=== PATIENT | female | born 1980 | race Caucasian/White ===

== ENCOUNTER 2022-03-18 10:24 | Inpatient (IN) | payer OTHER ==
[~2022-03-18] VITALS: Ht 175.3 cm; Wt 90.7 kg
[2022-03-18 11:02] LABS: APPEARANCE,URINE SL CLOUDY (CLEAR); BILIRUBIN,URINE NEGATIVE (NEGATIVE); COLOR,URINE DARK YELLOW (YELLOW); GLUCOSE, URINE (UA) NEGATIVE (NEGATIVE); KETONES,URINE NEGATIVE (NEGATIVE); LEUKOCYTE ESTERASE ,URINE TRACE (NEGATIVE); NITRATE,URINE NEGATIVE (NEGATIVE); OCCULT BLOOD,URINE LARGE (NEGATIVE); PH,URINE 6.5 (5.0-8.0); PROTEIN,URINE NEGATIVE (NEGATIVE); UROBILINOGEN,URINE 0.2 mg/dL (0.2-1.0)
[2022-03-18 11:03] LABS: HCG,QUALITATIVE URINE NEGATIVE (NEGATIVE)
[2022-03-18 11:09] LABS: CREATININE 0.7 mg/dL (0.5-1.5)
[2022-03-18 11:19] LABS: ALBUMIN 2.2 g/dL (3.5-5.0); TOTAL PROTEIN, SERUM 7.1 g/dL (6.0-8.3)
[2022-03-18 11:26] LABS: BASOPHILS % (AUTO) 0.1 % (0.0-5.0); EOSINOPHILS % (AUTO) 0.6 % (0.0-8.0); HEMATOCRIT 32.5 % (36-48); LYMPHOCYTES % (AUTO) 15.7 % (21.0-51.0); MEAN CORPUSCULAR HEMOGLOBIN 26.7 pg (27.0-33.0); MEAN CORPUSCULAR VOLUME 83.3 fL (79-99); MONOCYTES % (AUTO) 5.2 % (3.0-13.0); NEUTROPHILS % (AUTO) 77.5 % (40.0-77.0); PLATELET COUNT (AUTO) 486 K/uL (130-400); WHITE BLOOD COUNT (AUTO) 15.7 K/uL (4.8-10.8)
[2022-03-18] MEDS ORDERED: ONDANSETRON 4MG INJ IVP ONE (11:30)
[2022-03-18] MEDS ORDERED: MORPHINE 4 MG SYG IVP ONE ×2 (11:30→14:00)
[2022-03-18] MEDS: 0.9%NACL 1000ML 1,000 ML IV SCH ×3 (11:42→16:19)
[2022-03-18 11:46] LABS: BACTERIA,URINE Few /HPF (None Seen); MUCUS,URINE Many LPF (None Seen); WBC,URINE 0-1 /HPF (0-1)
[2022-03-18] MEDS ORDERED: IOHEXOL 350 MG/ML 100ML INFUS..BTL IV ONE (12:34)
[2022-03-18] MEDS ORDERED: ZOSYN 3.375GM +NS 50ML IV ONE (14:00)
[2022-03-18] MEDS ORDERED: MORPHINE 8MG VIAL IVP ONE (16:00)
[2022-03-18] MEDS ORDERED: KETOROLAC 30MG VIAL (30MG/ML) IVP ONE (16:00)
[2022-03-18] MEDS ORDERED: MORPHINE 4 MG SYG ONE (21:53)
[2022-03-18] MEDS ORDERED: TEMAZEPAM 15 MG CAPSULE PO PRN (23:00)
[2022-03-18] MEDS ORDERED: ACETAMINOPHEN 650 MG SUPPOSITORY RC PRN (23:00)
[2022-03-18] MEDS ORDERED: LABETALOL 20MG SYG IV PRN (23:00)
[2022-03-18] MEDS ORDERED: HYDRALAZINE 20MG/ML VIAL IV PRN (23:00)
[2022-03-18] MEDS ORDERED: ONDANSETRON 4MG INJ IVP PRN (23:00)
[2022-03-18] MEDS ORDERED: HYDROMORPHONE 1 MG INJ IVP PRN (23:00)
[2022-03-18] MEDS ORDERED: CLONIDINE HCL 0.1 MG TABLET PO PRN (23:00)
[2022-03-18] MEDS ORDERED: LACTULOSE 20 GM/30 ML UDCUP PO PRN (23:00)
[2022-03-18] MEDS ORDERED: DOCUSATE SODIUM 100 MG CAP PO PRN (23:00)
[2022-03-18] MEDS: ZOSYN 3.375GM +NS 50ML IV SCH (23:57)
[2022-03-18] MEDS: LACTATED RINGERS 1000ML 1,000 ML IV SCH (23:57)
[2022-03-19] VITALS (10 sets, daily range): BP systolic 81–126; BP diastolic 29–67
[2022-03-19] MEDS: TRAMADOL HCL 50 MG TABLET PO PRN (00:26)
[2022-03-19] MEDS: HYDROMORPHONE 1 MG INJ IVP PRN (04:01)
[2022-03-19] MEDS ORDERED: POTASSIUM CHLORIDE 20MEQ/100ML 100 ML IV PRN (04:30)
[2022-03-19] MEDS ORDERED: DEXTROSE 50%-WATER 50 ML DISP.SYRIN IV PRN (04:30)
[2022-03-19] MEDS ORDERED: GLUCAGON 1MG KIT 1 MG ML IM PRN (04:30)
[2022-03-19] MEDS: INSULIN HUMULIN R 100 UNIT/ML 3ML SQ SCH ×4 (06:00→21:00)
[2022-03-19] MEDS: KETOROLAC 30MG VIAL (30MG/ML) IM PRN ×2 (07:21→15:13)
[2022-03-19 07:34] LABS: BASOPHILS % (AUTO) 0.1 % (0.0-5.0); EOSINOPHILS % (AUTO) 0.8 % (0.0-8.0); HEMATOCRIT 30.9 % (36-48); LYMPHOCYTES % (AUTO) 22.2 % (21.0-51.0); MEAN CORPUSCULAR HEMOGLOBIN 26.9 pg (27.0-33.0); MEAN CORPUSCULAR HGB CONC 32.4 g/dL (32.0-36.0); MEAN CORPUSCULAR VOLUME 83.1 fL (79-99); MONOCYTES % (AUTO) 4.3 % (3.0-13.0); NEUTROPHILS % (AUTO) 71.7 % (40.0-77.0); PLATELET COUNT (AUTO) 475 K/uL (130-400); RED BLOOD CELL COUNT(AUTO) 3.72 MIL/uL (4.00-5.50); RED CELL DISTRIBUTION WIDTH 15.9 % (11.0-15.5); WHITE BLOOD COUNT (AUTO) 13.7 K/uL (4.8-10.8)
[2022-03-19 07:45] LABS: CREATININE 0.8 mg/dL (0.5-1.5); MAGNESIUM 1.6 mg/dL (1.80-2.40); PHOSPHORUS 3.8 mg/dL (2.5-4.9)
[2022-03-19] MEDS: LACTATED RINGERS 1000ML 1,000 ML IV SCH (08:34)
[2022-03-19] MEDS: ZOSYN 3.375GM +NS 50ML IV SCH ×3 (08:34→23:21)
[2022-03-19] MEDS: PANTOPRAZOLE 40 MG/VIAL IVP SCH ×2 (10:24→20:36)
[2022-03-19 10:27] LABS: PROTHROMBIN TIME 10.9 SEC (9.6-11.6)
[2022-03-19 10:28] LABS: PARTIAL THROMBOPLASTIN TIME 27.9 SEC (26.3-35.5)
[2022-03-19] MEDS ORDERED: FENTANYL CITRATE PF 50 MCG/1 ML 2ML VIAL ONE (13:14)
[2022-03-19] MEDS ORDERED: MIDAZOLAM HCL 1 MG/ML 2ML VIAL ONE (13:15)
[2022-03-19] MEDS ORDERED: IOHEXOL 350 MG/ML 100ML INFUS..BTL IV ONE (13:37)
[2022-03-19] MEDS ORDERED: LIDOCAINE HCL-MPF 1% 2ML VIAL ONE (16:23)
[2022-03-20] VITALS (7 sets, daily range): BP systolic 89–111; BP diastolic 49–57
[2022-03-20] MEDS: ACETAMINOPHEN 325 MG TAB PO PRN ×3 (00:15→19:26)
[2022-03-20] MEDS: LACTATED RINGERS 1000ML 1,000 ML IV SCH ×2 (00:20→00:21)
[2022-03-20] MEDS ORDERED: LACTATED RINGERS IV ONE (00:30)
[2022-03-20] MEDS ORDERED: VANCOMYCIN 1G VIAL IVPB ONE (00:30)
[2022-03-20] MEDS ORDERED: VANCOMYCIN PROTOCOL PER PHARMACY IV SCH (00:30)
[2022-03-20] MEDS ORDERED: DEXTROSE 50%-WATER 50 ML DISP.SYRIN IV PRN (01:00)
[2022-03-20] MEDS ORDERED: GLUCAGON 1MG KIT 1 MG ML IM PRN (01:00)
[2022-03-20] MEDS ORDERED: LIDOCAINE HCL-MPF 1% 2ML VIAL IV PRN (01:00)
[2022-03-20] MEDS ORDERED: NOREPINEPHRIN 4MG/NS 250ML 250 ML IV SCH (01:00)
[2022-03-20] MEDS ORDERED: POTASSIUM CHLORIDE 20MEQ/100ML 100 ML IV PRN (01:00)
[2022-03-20] MEDS ORDERED: VANCOMYCIN 1G/250ML KIT 250 ML IV ONE (01:00)
[2022-03-20] MEDS: TRAMADOL HCL 50 MG TABLET PO PRN (04:33)
[2022-03-20 04:44] LABS: BASOPHILS % (AUTO) 0.3 % (0.0-5.0); EOSINOPHILS % (AUTO) 0.2 % (0.0-8.0); HEMATOCRIT 29.8 % (36-48); LYMPHOCYTES % (AUTO) 6.2 % (21.0-51.0); MEAN CORPUSCULAR HEMOGLOBIN 27.1 pg (27.0-33.0); MEAN CORPUSCULAR HGB CONC 32.9 g/dL (32.0-36.0); MEAN CORPUSCULAR VOLUME 82.5 fL (79-99); MONOCYTES % (AUTO) 0.8 % (3.0-13.0); PLATELET COUNT (AUTO) 393 K/uL (130-400); RED BLOOD CELL COUNT(AUTO) 3.61 MIL/uL (4.00-5.50); WHITE BLOOD COUNT (AUTO) 24.7 K/uL (4.8-10.8)
[2022-03-20 04:59] LABS: ALBUMIN 1.7 g/dL (3.5-5.0); CREATININE 0.9 mg/dL (0.5-1.5); MAGNESIUM 1.2 mg/dL (1.80-2.40); POTASSIUM 3.8 mmol/L (3.5-5.1); TOTAL PROTEIN, SERUM 6.2 g/dL (6.0-8.3)
[2022-03-20] MEDS: INSULIN HUMULIN R 100 UNIT/ML 3ML SQ SCH ×4 (06:00→23:58)
[2022-03-20] MEDS: MAGNESIUM 2GM PREMIX 50ML 50 ML IV PRN (06:20)
[2022-03-20] MEDS ORDERED: POTASSIUM CHLORIDE 10% ELIXIR 20 MEQ/15 ML UDCUP PO PRN (06:30)
[2022-03-20] MEDS ORDERED: KCL 20 MEQ ERTAB PO PRN (06:30)
[2022-03-20] MEDS: PANTOPRAZOLE 40 MG/VIAL IVP SCH ×2 (08:25→20:02)
[2022-03-20] MEDS: ZOSYN 3.375GM +NS 50ML IV SCH ×3 (08:26→23:41)
[2022-03-20] MEDS: VANCOMYCIN 1.25 GM/250 ML BAG 250 ML IV SCH ×2 (08:26→20:02)
[2022-03-20] MEDS: DEXTROSE 5%-LACTATED RINGERS 1,000 ML IV SCH ×3 (10:55→20:30)
[2022-03-20] MEDS ORDERED: TEMAZEPAM 7.5 MG CAPSULE PO PRN (21:00)
[2022-03-20] MEDS ORDERED: MIDODRINE HCL 5 MG TABLET PO PRN (21:30)
[2022-03-21 03:32] VITALS: BP 115/65
[2022-03-21 03:41] LABS: BASOPHILS % (AUTO) 0.2 % (0.0-5.0); EOSINOPHILS % (AUTO) 0.7 % (0.0-8.0); HEMATOCRIT 28.7 % (36-48); LYMPHOCYTES % (AUTO) 11.7 % (21.0-51.0); MEAN CORPUSCULAR HEMOGLOBIN 26.8 pg (27.0-33.0); MEAN CORPUSCULAR HGB CONC 32.1 g/dL (32.0-36.0); MEAN CORPUSCULAR VOLUME 83.7 fL (79-99); MONOCYTES % (AUTO) 1.4 % (3.0-13.0); NEUTROPHILS % (AUTO) 84.6 % (40.0-77.0); PLATELET COUNT (AUTO) 398 K/uL (130-400); RED BLOOD CELL COUNT(AUTO) 3.43 MIL/uL (4.00-5.50); RED CELL DISTRIBUTION WIDTH 16.2 % (11.0-15.5); WHITE BLOOD COUNT (AUTO) 16.9 K/uL (4.8-10.8)
[2022-03-21 04:03] LABS: ALBUMIN 1.5 g/dL (3.5-5.0); CREATININE 0.7 mg/dL (0.5-1.5); POTASSIUM 4.1 mmol/L (3.5-5.1)
[2022-03-21 04:15] LABS: INR 1.1 (0.85-1.15); PROTHROMBIN TIME 11.9 SEC (9.6-11.6)
[2022-03-21 04:25] LABS: % IRON SATURATION 7.6 % (22-44)
[2022-03-21 04:31] LABS: RETICULOCYTE % (AUTO) 0.87 % (0.42-2.23)
[2022-03-21] MEDS: INSULIN HUMULIN R 100 UNIT/ML 3ML SQ SCH ×4 (06:00→20:21)
[2022-03-21] MEDS: DEXTROSE 5%-LACTATED RINGERS 1,000 ML IV SCH ×3 (06:30→22:01)
[2022-03-21] MEDS ORDERED: DIATR MEGLU/DIATRIZOATE SODIUM 30 ML BOTTLE ONE (06:30)
[2022-03-21] MEDS ORDERED: 0.9%NACL 50ML 50 ML IV ONE (06:33)
[2022-03-21] MEDS: ZOSYN 3.375GM +NS 50ML IV SCH ×3 (06:49→23:54)
[2022-03-21 07:30] VITALS: BP 115/72
[2022-03-21] MEDS: VANCOMYCIN 1.25 GM/250 ML BAG 250 ML IV SCH ×2 (09:03→20:39)
[2022-03-21] MEDS: FLUCONAZOLE 400 MG/NS 200 ML 200 ML IV SCH (09:03)
[2022-03-21] MEDS: PANTOPRAZOLE 40 MG/VIAL IVP SCH ×2 (09:03→20:38)
[2022-03-21] MEDS: ENOXAPARIN SODIUM 40 MG/0.4 ML SYRINGE SQ SCH (09:04)
[2022-03-21] MEDS: HYDROMORPHONE 1 MG INJ IVP PRN (09:04)
[2022-03-21 09:27] LABS: INR 1.08 (0.85-1.15); PROTHROMBIN TIME 11.7 SEC (9.6-11.6)
[2022-03-21 09:29] LABS: PARTIAL THROMBOPLASTIN TIME 28.5 SEC (26.3-35.5)
[2022-03-21 11:19] VITALS: BP 125/72
[2022-03-21] MEDS ORDERED: PROPOFOL 10 MG/ML 20ML VIAL IV ONE (12:52)
[2022-03-21] MEDS ORDERED: KETOROLAC 30MG VIAL (30MG/ML) ONE (12:56)
[2022-03-21] MEDS ORDERED: IOHEXOL 350 MG/ML 100ML INFUS..BTL IV ONE (13:48)
[2022-03-21 15:43] VITALS: BP 117/70
[2022-03-21] MEDS: KETOROLAC 30MG VIAL (30MG/ML) IM PRN (17:19)
[2022-03-21 20:00] VITALS: BP 101/74
[2022-03-22] VITALS: BP 112/78
[2022-03-22] MEDS: HYDROMORPHONE 1 MG INJ IVP PRN ×2 (01:52→11:52)
[2022-03-22 03:49] LABS: BASOPHILS % (AUTO) 0.1 % (0.0-5.0); EOSINOPHILS % (AUTO) 2.1 % (0.0-8.0); HEMATOCRIT 28.6 % (36-48); LYMPHOCYTES % (AUTO) 17.5 % (21.0-51.0); MEAN CORPUSCULAR HEMOGLOBIN 26.9 pg (27.0-33.0); MEAN CORPUSCULAR HGB CONC 32.2 g/dL (32.0-36.0); MEAN CORPUSCULAR VOLUME 83.6 fL (79-99); MONOCYTES % (AUTO) 3.5 % (3.0-13.0); NEUTROPHILS % (AUTO) 75.8 % (40.0-77.0); PLATELET COUNT (AUTO) 401 K/uL (130-400); RED BLOOD CELL COUNT(AUTO) 3.42 MIL/uL (4.00-5.50); RED CELL DISTRIBUTION WIDTH 16.4 % (11.0-15.5); WHITE BLOOD COUNT (AUTO) 7.1 K/uL (4.8-10.8)
[2022-03-22 03:52] VITALS: BP 129/70
[2022-03-22 04:24] LABS: ALBUMIN 1.5 g/dL (3.5-5.0); CREATININE 0.8 mg/dL (0.5-1.5); MAGNESIUM 1.9 mg/dL (1.80-2.40); POTASSIUM 3.9 mmol/L (3.5-5.1); TOTAL PROTEIN, SERUM 6.1 g/dL (6.0-8.3)
[2022-03-22] MEDS: INSULIN HUMULIN R 100 UNIT/ML 3ML SQ SCH ×3 (07:23→15:49)
[2022-03-22] MEDS: ZOSYN 3.375GM +NS 50ML IV SCH ×3 (07:30→23:13)
[2022-03-22 08:00] VITALS: BP 125/74
[2022-03-22] MEDS: VANCOMYCIN 1.25 GM/250 ML BAG 250 ML IV SCH (08:56)
[2022-03-22] MEDS: FLUCONAZOLE 400 MG/NS 200 ML 200 ML IV SCH (08:56)
[2022-03-22] MEDS: PANTOPRAZOLE 40 MG/VIAL IVP SCH ×2 (08:57→20:01)
[2022-03-22] MEDS: ENOXAPARIN SODIUM 40 MG/0.4 ML SYRINGE SQ SCH (08:57)
[2022-03-22] MEDS: DEXTROSE 5%-LACTATED RINGERS 1,000 ML IV SCH (08:57)
[2022-03-22 11:22] VITALS: BP 122/74
[2022-03-22] MEDS ORDERED: IBUPROFEN 600 MG TABLET PO PRN (12:30)
[2022-03-22] MEDS ORDERED: TRAMADOL HCL 50 MG TABLET PO PRN (12:30)
[2022-03-22 15:20] VITALS: BP 124/78
[2022-03-22 20:00] VITALS: BP_SYST 125; BP_SYST 94; BP_DIAS 55; BP_DIAS 76
[2022-03-22] MEDS ORDERED: MORPHINE 2 MG SYG IVP ONE (23:00)
[2022-03-23] VITALS: BP 121/74
[2022-03-23 04:00] VITALS: BP 115/77
[2022-03-23 04:24] LABS: BASOPHILS % (AUTO) 0.2 % (0.0-5.0); EOSINOPHILS % (AUTO) 1.8 % (0.0-8.0); HEMATOCRIT 27.7 % (36-48); LYMPHOCYTES % (AUTO) 42.3 % (21.0-51.0); MEAN CORPUSCULAR HEMOGLOBIN 26.8 pg (27.0-33.0); MEAN CORPUSCULAR HGB CONC 32.1 g/dL (32.0-36.0); MEAN CORPUSCULAR VOLUME 83.4 fL (79-99); MONOCYTES % (AUTO) 6.5 % (3.0-13.0); NEUTROPHILS % (AUTO) 48.2 % (40.0-77.0); PLATELET COUNT (AUTO) 443 K/uL (130-400); RED BLOOD CELL COUNT(AUTO) 3.32 MIL/uL (4.00-5.50); RED CELL DISTRIBUTION WIDTH 16.1 % (11.0-15.5); WHITE BLOOD COUNT (AUTO) 6.3 K/uL (4.8-10.8)
[2022-03-23 04:52] LABS: ALBUMIN 1.5 g/dL (3.5-5.0); CREATININE 0.8 mg/dL (0.5-1.5); MAGNESIUM 1.7 mg/dL (1.80-2.40); POTASSIUM 3.9 mmol/L (3.5-5.1); TOTAL PROTEIN, SERUM 6.1 g/dL (6.0-8.3)
[2022-03-23] MEDS: MAGNESIUM 2GM PREMIX 50ML 50 ML IV PRN (06:33)
[2022-03-23] MEDS: ZOSYN 3.375GM +NS 50ML IV SCH (07:30)
[2022-03-23 08:00] VITALS: BP 118/74
[2022-03-23] MEDS: FLUCONAZOLE 400 MG/NS 200 ML 200 ML IV SCH (09:00)
[2022-03-23] MEDS: ENOXAPARIN SODIUM 40 MG/0.4 ML SYRINGE SQ SCH (09:00)
[2022-03-23] MEDS: PANTOPRAZOLE 40 MG/VIAL IVP SCH (09:00)
[2022-03-23] MEDS ORDERED: DOXYCYCLINE 100MG+NS 250ML IV SCH (09:30)
[2022-03-23 14:00] VITALS: BP 102/62
[2022-03-23 16:00] VITALS: BP 102/62
[2022-03-23 20:31] VITALS: BP 132/78
== END 2022-03-23 09:52 | disposition left against medical advice (07) | DRG 871 ==
LOC: EDH 10:24 → EDHIP 17:06 → OBSVTOIN 17:06 → WSH 03-19 08:49 → 2AH 03-20 04:10
PROVIDERS: ADMIT Internal Medicine; ATTEND Internal Medicine
PROC: 0W9J30Z Drainage of Pelvic Cavity with Drainage Device, Percutaneous Approach (ICD-10-PCS; principal; 2022-03-19)
DX: A41.9 Sepsis, unspecified organism (principal); R65.21 Severe sepsis with septic shock; N73.9 Female pelvic inflammatory disease, unspecified; M32.9 Systemic lupus erythematosus, unspecified; Z20.822 Contact with and (suspected) exposure to COVID-19; D64.9 Anemia, unspecified; E66.01 Morbid (severe) obesity due to excess calories; E87.8 Other disorders of electrolyte and fluid balance, not elsewhere classified; F41.9 Anxiety disorder, unspecified; Z68.29 Body mass index [BMI] 29.0-29.9, adult
CPT/HCPCS: 36415; 71045; 74177; 74178; 75989; 76830; 76856; 80048; 80053; 80202; 81001; 81025; 82270; 82607; 82728; 82948; 83605; 83690; 83735; 84100; 84702; 85025; 85610; 85730; 87040; 87071; 87077; 87088; 87186; 87205; 87635; 99152; 99153; C9113; C9803; G0378; J1170; J1450; J1650; J1885; J2250; J2270; J2405; J2543; J2704; J3010; J3370; J3475; J3490; J7070; J7120; Q9963; Q9967